=== PATIENT | female | born 1995 ===

== ENCOUNTER 2017-10-28 20:04 | Emergency (ER) | payer SELFPAY ==
[2017-10-28] MEDS ORDERED: cefTRIAXone 250 MG, Lidocaine 1% 0.9 ML IM ONE ×2 (21:20)
[2017-10-28] MEDS ORDERED: Lidocaine 2% Jelly 5 ML Tube TOP ONE (21:20)
[2017-10-28] MEDS ORDERED: Acyclovir 200 MG Cap PO ONE (21:20)
[2017-10-28] MEDS ORDERED: Azithromycin 250 MG Tab PO ONE (21:20)
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
== END 2017-10-28 23:03 | disposition left against medical advice (07) ==
LOC: EEVIPCON 20:04 → DL.ED 20:04
DX: A64 Unspecified sexually transmitted disease (principal); N76.0 Acute vaginitis; Z88.0 Allergy status to penicillin; F17.210 Nicotine dependence, cigarettes, uncomplicated
CPT/HCPCS: 81001; 81025; 86703; 86803; 87210; 96372; 99283; A9270; J0696; 36415; 87491; 87529; 87591